=== PATIENT | female | born 1980 | race Caucasian/White ===

== ENCOUNTER 2019-05-13 09:44 | Day surgery (SDC) | payer MEDICAID ==
[~2019-05-13 09:44] MED LIST: ACETAMINOPHEN 325 MG TABLET PO PRN; CEFAZOLIN SODIUM 1 GM in DEXTROSE 5%-WATER 50 ML IV PRN; RINGERS SOLUTION,LACTATED 1,000 ML IV PRN
[2019-05-13 12:18] LABS: HEMATOCRIT 38.1 % (36.0-47.0); HEMOGLOBIN 12.9 g/dL (12.0-15.5); MEAN CORPUSCULAR HEMOGLOBIN 30.4 pg (27.0-33.4); MEAN CORPUSCULAR HGB CONC 33.9 g/dL (32.0-36.0); MEAN CORPUSCULAR VOLUME 90 fl (80-97); PLATELET COUNT 274 10^3/uL (150-450); RED BLOOD COUNT 4.26 10^6/uL (3.72-5.28); RED CELL DISTRIBUTION WIDTH 13.4 % (11.5-14.0); WHITE BLOOD COUNT 5.9 10^3/uL (4.0-10.5)
[2019-05-13] MEDS ORDERED: BACITRACIN INJ 50,000 UNIT VIAL ONE (12:36)
[2019-05-13] MEDS ORDERED: LIDOCAINE 0.5% INJ-PF (5 MG/ML) 50 ML SDV ONE (12:36)
[2019-05-13] MEDS ORDERED: MIDAZOLAM 2 MG/2 ML INJ ONE ×3 (12:39→13:32)
[2019-05-13] MEDS ORDERED: FENTANYL CITRATE INJ/PF 100 MCG/2 ML AMPUL ONE (12:39)
--- NOTE | 2019-05-13 14:05 | Discharge Summary ---
Discharge Summary (SDC) - Discharge Final Diagnosis: Multicentric left breast cancer Date of Surgery: 05/13/19 Discharge Date: 05/13/19 Condition: Good Treatment or Instructions: May use port; may shower in 48 hours; prescription for Toradol provided; follow-up with [facility] in 1 to 2 weeks Discharge Diet: As Tolerated Discharge Activity: Activity As Tolerated Home Care Assistance: None Needed Report the Following to Your Physician Immediately: Shortness of Breath, Increase in Pain, Fever over 101 Degrees
--- NOTE | 2019-05-13 14:16 | Operative Report ---
Operative Report DATE OF SURGERY: 05/13/19 PREOPERATIVE DIAGNOSIS: Multicentric left breast cancer POSTOPERATIVE DIAGNOSIS: Same OPERATION: 1. Focused ultrasound of the right neck. 2. Catheter insertion of right internal jugular vein catheter with port in the right subclavian position. 3. Interpretation of intraoperative fluoroscopy SURGEON: CONNOR LOOMIS ANESTHESIA: Moderate Sedation TISSUE REMOVED OR ALTERED: None COMPLICATIONS: None ESTIMATED BLOOD LOSS: 10 cc INTRAOPERATIVE FINDINGS: See below PROCEDURE: The patient was taken from the amatory surgery to the cardiac Industrial Nurse which was placed supine position arms tucked, right neck and chest wall prepped and draped in sterile fashion. Surgical plan surgical timeout were conducted Using real-time ultrasound as a guide, the right internal jugular vein was localized, overlying skin anesthetized 1% plain lidocaine, myrna made the skin with 11 blade, and micro needle and wire threaded into the right internal jugular vein Suitable site for placement of the port was chosen in the right subclavian position. Skin was anesthetized with 1% plain lidocaine, 3-1/2 cm long incision was made with a knife. Using electrocautery, port pocket was developed large enough to accommodate a single-chamber port. The catheter was then trimmed the appropriate length, tunneled between the 2 incisions, then attached to the port with the plastic ring. The port was tucked into the right subclavian position The microwire was switched over to a conventional 0.030 guidewire using the micro introducer sheath. The 8.8 Turkmen introducer sheath and dilator were threaded over the guidewire, guidewire and wire removed, and catheter free and threaded into the strip away sheath strip away sheath was removed, leaving the catheter in good position fluoroscopically with the right atrium. There was no kinking of the catheter at the neck. We inserted a Barnett needle into the port, and port was aspirated and flushed satisfactorily. At this point we felt the operation had been completed successfully. All wounds closed with 3-0 Vicryl benzoin and Steri-Strips. Patient tolerated procedure well, taken recovery in stable condition.
--- NOTE | 2019-05-13 14:37 | RADIOLOGY REPORT (SQ) ---
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 FLUOROSCOPY TIME: 0.1 minute 25 images saved to PACS. TECHNIQUE: Intra-operative images acquired during surgical procedure to evaluate progress. NUMBER OF IMAGES: 25 LIMITATIONS: None. FINDINGS: Fluoroscopic images from right-sided port placement. Tip overlies SVC. IMPRESSION: IMAGE(S) OBTAINED DURING PROCEDURE. COMMENT: Quality ID 145: Final reports for procedures using fluoroscopy that document radiation exp osure indices, or exposure time and number of fluorographic images (if radiation exposure indices are not available) Please consult full operative report of the attending physician for description of the procedure. TECHNICAL DOCUMENTATION: JOB ID: [id number] [employer]- All Rights Reserved Reading location - IP/workstation name: [email or web address]
[2019-05-13 15:09] VITALS: BP 130/80
== END 2019-05-13 15:00 | disposition home or self-care (01) ==
LOC: CCL 09:44
PROVIDERS: ATTEND Surgery
DX: C50.812 Malignant neoplasm of overlapping sites of left female breast (principal); E28.2 Polycystic ovarian syndrome; Z80.3 Family history of malignant neoplasm of breast
CPT/HCPCS: 36415; 85027; 81025; 36561; 76937; 77001; C1752; C1788; J2250; J3490 ×2; J0690; J3010; J7060; J1644

== ENCOUNTER → 2019-05-16 | Outpatient (CLI) | payer MEDICAID ==
--- NOTE | 2019-05-16 12:50 | RADIOLOGY REPORT (SQ) ---
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 RADIONUCLIDE AND DOSE: 20 millicuries Tc99m HDP. The route of agent administration: Intravenous. ADDITIONAL DRUGS AND DOSES: None. TECHNIQUE: Routine delayed images at 3 hours post radionuclide injection acquired of the bony skelet on including anterior and posterior whole-body projections and additional focused images as needed. LIMITATIONS: None. FINDINGS: BONES: There is focal uptake in the right scapula, the proximal right 7th rib, the proxima l 4th ribs, the right coracoid process, the right 5th costochondral junction, the right 6th rib anter iorly, the left maxilla. KIDNEYS: Symmetric excretion without obstruction. OTHER: No other significant finding. IMPRESSION: The skeletal findings suggest metastatic disease to bone. The activity in the maxilla m ay be secondary to dental disease. COMMENT: Quality measure 147: No available prior imaging studies for comparison TECHNICAL DOCUMENTATION: JOB ID: [id number] [employer]- All Rights Reserved Reading location - IP/workstation name: [email or web address]
== END ==
LOC: RAD 07:57
PROVIDERS: ATTEND Internal Medicine Hematology & Oncology
DX: C50.812 Malignant neoplasm of overlapping sites of left female breast (principal)
CPT/HCPCS: 78306; A9561; Q9969

== ENCOUNTER → 2019-05-20 | Outpatient (CLI) | payer MEDICAID ==
--- NOTE | 2019-05-20 10:21 | RADIOLOGY REPORT (SQ) ---
EXAM DESCRIPTION: CT ABD/PELVIS WITH IV ORAL COMPLETED DATE/TIME: 05/20/2019 9:13 am REASON FOR STUDY: MALIGNANT NEOPLASM OF OVRLP SITES OF LEFT FEMALE BREAST C50.812 MALIGNANT NEOPLAS M OF OVRLP SITES OF LEFT FEMALE SIMIN COMPARISON: 05/16/2019 bone scan TECHNIQUE: CT scan of the abdomen and pelvis performed using helical scanning technique with dynamic intravenous contrast injection. Patient was given oral contrast. Images reviewed with lung, soft ti ssue, and bone windows. Reconstructed coronal and sagittal MPR images reviewed. Delayed images for ev aluation of the urinary system also acquired. All images stored on PACS. All CT scanners at this facility use dose modulation, iterative reconstruction, and/or weight based d osing when appropriate to reduce radiation dose to as low as reasonably achievable (ALARA). [facility]: Dose Right [facility]: CareDose [facility]: Dose Right [facility]: Teradose 4D [facility]: [employer] CONTRAST TYPE AND DOSE: contrast/concentration: Isovue 350.00 mg/ml; Total Contrast Delivered: 100.0 ml; Total Saline Delivered: 72.0 ml RENAL FUNCTION: None required. The patient is less than 50 years old. RADIATION DOSE: . LIMITATIONS: None. FINDINGS: LOWER CHEST: See separate report of the CT of the chest. LIVER: Hepatic steatosis. No focal lesions. No intrahepatic ductal dilation. SPLEEN: Peripherally calcified splenic lesion measuring 2.2 cm. No additional focal lesions. PANCREAS: No masses. No significant calcifications. No adjacent inflammation or peripancreatic fluid collections. Pancreatic duct not dilated. GALLBLADDER: No identified stones by CT criteria. No inflammatory changes to suggest cholecystitis. ADRENAL GLANDS: No significant masses or asymmetry. RIGHT KIDNEY AND URETER: No solid masses. No significant calcifications. No hydronephrosis or hyd roureter. LEFT KIDNEY AND URETER: No solid masses. No significant calcifications. No hydronephrosis or hydr oureter. AORTA AND VESSELS: No aneurysm. No dissection. Renal arteries, SMA, celiac without stenosis. RETROPERITONEUM: No retroperitoneal adenopathy, hemorrhage or masses. BOWEL AND PERITONEAL CAVITY: No masses or inflammatory changes. No free fluid or peritoneal masses. APPENDIX: Normal. PELVIS: Decompressed urinary bladder. Unremarkable uterus and adnexal. No lymphadenopathy. No free fluid. ABDOMINAL WALL: No masses. No hernias. BONES: No acute bony abnormality. No discrete lytic or blastic osseous lesions. No discrete osseous findings to correspond to previously seen areas of increased uptake on the bone scan. OTHER: No other significant finding. IMPRESSION: 1. Peripherally calcified dx 2.2 cm splenic lesion, likely sequelae from prior infectio n/trauma. 2. Hepatic steatosis. 3. No other evidence of acute intra-abdominal process or intra-abdominal/pelvic metastatic disease. TECHNICAL DOCUMENTATION: JOB ID: [id number] Quality ID # 436: Final reports with documentation of one or more dose reduction techniques (e.g., Au tomated exposure control, adjustment of the mA and/or kV according to patient size, use of iterative reconstruction technique) 2010 [employer]- All Rights Reserved Reading location - IP/workstation name: [email or web address]
--- NOTE | 2019-05-20 10:31 | RADIOLOGY REPORT (SQ) ---
EXAM DESCRIPTION: CT CHEST WITH COMPLETED DATE/TIME: 05/20/2019 9:13 am REASON FOR STUDY: MALIGNANT NEOPLASM OF OVRLP SITES OF LEFT FEMALE BREAST C50.812 MALIGNANT NEOPLAS M OF OVRLP SITES OF LEFT FEMALE SIMIN COMPARISON: None. TECHNIQUE: CT scan of the chest performed using helical scanning technique with dynamic intravenous contrast injection. Images reviewed with lung, soft tissue and bone windows. Reconstructed coronal and sagittal MPR and MIP images reviewed. All images stored on PACS. All CT scanners at this facility use dose modulation, iterative reconstruction, and/or weight based d osing when appropriate to reduce radiation dose to as low as reasonably achievable (ALARA). [facility]: Dose Right [facility]: CareDose [facility]: Dose Right [facility]: Teradose 4D [facility]: [employer] CONTRAST TYPE AND DOSE: See abdomen RENAL FUNCTION: None required. The patient is less than 50 years old. RADIATION DOSE: CT Rad equipment meets quality standard of care and radiation dose reduction techniq ues were employed. CTDIvol: 10.0 - 12.9 mGy. DLP: 1921 mGy-cm. . LIMITATIONS: None. FINDINGS: LUNGS AND PLEURA: No opacities, nodules, masses. No pneumothorax. No effusions. HILAR AND MEDIASTINAL STRUCTURES: No identified masses or abnormal nodes. HEART AND VASCULAR STRUCTURES: No aneurysm or dissection. No central pulmonary emboli. No pericardi al effusion. HARDWARE: Right-sided internal jugular based chest port with catheter tip at cavoatrial junction UPPER ABDOMEN: See separate report of the CT of the abdomen. THYROID AND OTHER SOFT TISSUES: Unremarkable thyroid. Asymmetric multilobulated soft tissue density within the left breast with evidence of prior clip placement. Largest area measures approximately 5. 6 x 3.4 cm. There additional adjacent subcutaneous areas including a superficial component measuring up to 3.2 cm. There is left axillary adenopathy, largest axillary node measures 18 mm in short axis (series 2, image 19). BONES: No acute bony abnormality. Subtle area of lucency within the medial right scapula (series 6, image 30) which likely corresponds to bone scan finding. No other findings to correspond to areas of increased uptake within the prior bone scan. OTHER: No other significant finding. IMPRESSION: 1. Asymmetric multilobulated increased density within the left breast compatible with k nown history of breast cancer. Enlarged left axillary lymph nodes compatible with metastatic disease . 2. No other evidence of intrathoracic metastatic disease. 3. Subtle area of lucency within the right medial right scapula which likely corresponds to bone sca n finding and suggestive of osseous metastatic disease. No other CT correlate for the areas of incre ased uptake on prior bone scan. TECHNICAL DOCUMENTATION: JOB ID: [id number] Quality ID # 436: Final reports with documentation of one or more dose reduction techniques (e.g., Au tomated exposure control, adjustment of the mA and/or kV according to patient size, use of iterative reconstruction technique) 2010 [employer]- All Rights Reserved Reading location - IP/workstation name: [email or web address]
== END ==
LOC: RAD 08:51
PROVIDERS: ATTEND Internal Medicine Hematology & Oncology
DX: C50.812 Malignant neoplasm of overlapping sites of left female breast (principal); K76.0 Fatty (change of) liver, not elsewhere classified
CPT/HCPCS: 71260; 74177

== ENCOUNTER → 2019-09-13 | Outpatient (CLI) | payer MEDICAID ==
--- NOTE | 2019-09-13 09:03 | RADIOLOGY REPORT (SQ) ---
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 Images reviewed with lung, soft tissue and bone windows. Reconstructed coronal a nd sagittal MPR images reviewed. All images stored on PACS. CT scan of the abdomen and pelvis performed with intravenous and without oral contrastusing helical s dorothy technique with dynamic intravenous contrast injection. Images reviewed with lung, soft tissu e and bone windows. Reconstructed coronal and sagittal MPR images reviewed. Delayed images for eval uation of the urinary system also acquired and evaluated. All images stored on PACS. All CT scanners at this facility use dose modulation, iterative reconstruction, and/or weight based d osing when appropriate to reduce radiation dose to as low as reasonably achievable (ALARA). [facility]: Dose Right [facility]: CareDose [facility]: Dose Right [facility]: Teradose 4D [facility]: [employer] RADIATION DOSE: CT Rad equipment meets quality standard of care and radiation dose reduction techniq ues were employed. CTDIvol: 8.5 - 11.9 mGy. DLP: 1640 mGy-cm. . LIMITATIONS: None. FINDINGS: CHEST: LUNGS AND PLEURA: No opacities, nodules, masses. No pneumothorax. No effusions. HILAR AND MEDIASTINAL STRUCTURES: No identified masses or abnormal nodes. HEART AND VASCULAR STRUCTURES: No aneurysm or dissection. No central pulmonary emboli. No pericardi al effusion. HARDWARE: Right-sided permanent central line tip superior vena cava. THYROID AND OTHER SOFT TISSUES: Decrease in size of left breast masses compared to prior chest CT as follows: 2.3 cm left breast mass axial image 16 (was 3.2 cm greatest diameter) 4.5 x 3 cm left breast mass axial image 19 (was 5.7 x 3.5 cm) Decrease in size of left axillary node compared to prior study, currently 2.7 x 2 cm axial image 17 ( was 3.5 x 2.3 cm). BONES: No significant finding. OTHER: No other significant finding. ABDOMEN AND PELVIS: LIVER: Normal size. No masses. No dilated ducts. Fatty infiltration SPLEEN: Normal size. Benign peripherally calcified 2.2 x 2.4 cm splenic cyst. PANCREAS: No masses. No significant calcifications. No adjacent inflammation or peripancreatic fluid collections. Pancreatic duct not dilated. GALLBLADDER: Tiny stone in the gallbladder axial image 26. No inflammatory changes to suggest cholecy stitis. ADRENAL GLANDS: No significant masses or asymmetry. RIGHT KIDNEY AND URETER: No solid masses. No significant calcification. No hydronephrosis or hydroure ter. LEFT KIDNEY AND URETER: No solid masses. No significant calcification. No hydronephrosis or hydrouret er. AORTA AND VESSELS: No aneurysm. No dissection. Renal arteries, SMA, celiac without stenosis. RETROPERITONEUM: No retroperitoneal adenopathy, hemorrhage or masses. BOWEL AND PERITONEAL CAVITY: No masses or inflammatory changes. No free fluid or peritoneal masses. APPENDIX: Normal. ABDOMINAL WALL: No masses. No hernias. PELVIS: No mass or free fluid. Normal bladder. BONES: No significant or acute findings. OTHER: No other significant finding. IMPRESSION: Treatment response radiographically left breast by CT. Decrease in size of left axillar y lymph node. No CT evidence of metastatic disease to the abdomen or pelvis TECHNICAL DOCUMENTATION: JOB ID: [id number] Quality ID # 436: Final reports with documentation of one or more dose reduction techniques (e.g., Au tomated exposure control, adjustment of the mA and/or kV according to patient size, use of iterative reconstruction technique) 2010 [employer]- All Rights Reserved Reading location - IP/workstation name: [email or web address]
== END ==
LOC: RAD 07:32
PROVIDERS: ATTEND Nurse Practitioner Family
DX: C50.812 Malignant neoplasm of overlapping sites of left female breast (principal)
CPT/HCPCS: 71260; 74177

== ENCOUNTER → 2020-01-03 | Outpatient (CLI) | payer MEDICAID ==
--- NOTE | 2020-01-03 13:59 | RADIOLOGY REPORT (SQ) ---
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 The route of agent administration: Intravenous. ADDITIONAL DRUGS AND DOSES: None. TECHNIQUE: Routine delayed images at 3 hour post radionuclide injection acquired of the bony skeleto n including anterior and posterior whole-body projections and additional focused images as needed. LIMITATIONS: None. FINDINGS: BONES: Focal area of uptake along the posterior right 6th ribs and right scapula, similar to prior. Additional focus of activity within the left maxilla, similar to prior. Additional previ ously described activity within the anterior 5th and 6th ribs have decreased in conspicuity. No new discrete lesions. Mild uptake at the bilateral feet, likely degenerative. KIDNEYS: Symmetric excretion without obstruction. OTHER: No other significant finding. IMPRESSION: 1. Stable to decreased conspicuity of previously described bony lesions as above and britton spicious for metastatic disease. No definitive CT correlate identified. 2. No new discrete osseous lesions. COMMENT: Quality measure 147: Current bone scan is compared with any available plain radiographs, p rior bone scans, and CT/MRI. TECHNICAL DOCUMENTATION: JOB ID: [id number] 2010 [employer]- All Rights Reserved Reading location - IP/workstation name: [email or web address]
== END ==
LOC: RAD 09:04
PROVIDERS: ATTEND Internal Medicine Hematology & Oncology
DX: C50.812 Malignant neoplasm of overlapping sites of left female breast (principal); C79.51 Secondary malignant neoplasm of bone
CPT/HCPCS: 78306; A9503; Q9969

== ENCOUNTER 2020-04-10 12:50 | Outpatient (CLI) | payer MEDICAID ==
[~2020-04-10 12:50] MED LIST changes: -ACETAMINOPHEN 325 MG TABLET PO PRN; -CEFAZOLIN SODIUM 1 GM in DEXTROSE 5%-WATER 50 ML IV PRN; +NORMAL SALINE 250 ML IV PRN; -RINGERS SOLUTION,LACTATED 1,000 ML IV PRN
[2020-04-10] MEDS: CALCIUM GLUCONATE 1 GM/NS 50 ML RTU IV PRN ×2 (13:06→14:24)
[2020-04-10 13:14] VITALS: BP 117/65
== END 2020-04-10 15:30 | disposition home or self-care (01) ==
LOC: II 12:50 → 5TH 12:53 → II 15:30
PROVIDERS: ATTEND Internal Medicine Hematology & Oncology
DX: E83.51 Hypocalcemia (principal)
CPT/HCPCS: 96365; 96366; J1642; J0610

== ENCOUNTER → 2020-05-04 | Outpatient (CLI) | payer MEDICAID ==
--- NOTE | 2020-05-04 09:39 | RADIOLOGY REPORT (SQ) ---
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 0 ml; Total Saline Delivered: 40.0 ml RENAL FUNCTION: None required. The patient is less than 50 years old. COMPARISON: 09/13/2019 TECHNIQUE: CT scan of the chest performed using helical scanning technique with dynamic intravenous contrast injection. Images reviewed with lung, soft tissue and bone windows. Reconstructed coronal a nd sagittal MPR images reviewed. All images stored on PACS. All CT scanners at this facility use dose modulation, iterative reconstruction, and/or weight based d osing when appropriate to reduce radiation dose to as low as reasonably achievable (ALARA). [facility]: Dose Right [facility]: CareDose [facility]: Dose Right [facility]: Teradose 4D [facility]: [employer] RADIATION DOSE: CT Rad equipment meets quality standard of care and radiation dose reduction techniq ues were employed. CTDIvol: 9.2 - 12.4 mGy. DLP: 1783 mGy-cm. . LIMITATIONS: None. FINDINGS: AXILLAE: The left chest wall lymph node measures 13.5 mm in diameter. This is decreased f rom prior study there has been a change in configuration as well. CHEST WALL: Left breast mass is measured 3.8 x 2.5 cm. Previously this measured 2.3 cm. LUNGS: No nodules or masses. No pneumothorax. No infiltrates. PLEURA: No effusions. No calcifications. THYROID: No masses or significant asymmetry. HILAR AND MEDIASTINAL STRUCTURES: No identified masses or abnormal nodes. AORTA AND GREAT VESSELS: No aneurysm. No dissection. PULMONARY ARTERIES: No identified pulmonary emboli. Study not optimized for the pulmonary arteries. HEART: No pericardial effusion. HARDWARE AND LIFELINES: Pcorey-L-Oimc is in place on the right. BONES: No significant finding. OTHER: No other significant finding. IMPRESSION: 1. Left breast mass is increasing in size and now measures 3.8 x 2.5 cm in size. 2. Left axillary adenopathy is again noted. There is a solid lymph node measuring 13.5 mm in greates t diameter. This is decreased in size compared to prior study there has been a change in configurati on as well. COMPARISON: None. RADIATION DOSE: CT Rad equipment meets quality standard of care and radiation dose reduction techniq ues were employed. CTDIvol: 9.2 - 12.4 mGy. DLP: 1783 mGy-cm. mGy. TECHNIQUE: CT scan of the abdomen and pelvis performed with intravenous and oral contrast using princess gina scanning technique with dynamic intravenous contrast injection. Images reviewed with lung, soft tissue and bone windows. Reconstructed coronal and sagittal MPR images reviewed. Delayed images for evaluation of the urinary system also acquired and evaluated. All images stored on PACS. All CT scanners at this facility use dose modulation, iterative reconstruction, and/or weight based d osing when appropriate to reduce radiation dose to as low as reasonably achievable (ALARA). [facility]: Dose Right [facility]: [employer] [facility]: Dose Right [facility]: Teradose 4D [facility]: [employer] FINDINGS: LIVER: Normal size. No masses. No dilated ducts. SPLEEN: Stable calcified splenic lesion most likely related via old trauma or old infectious process. PANCREAS: No masses. No significant calcifications. No adjacent inflammation or peripancreatic flui d collections. Pancreatic duct not dilated. GALLBLADDER: Gallstones. ADRENAL GLANDS: No significant masses or asymmetry. RIGHT KIDNEY AND URETER: No solid masses. No significant calcifications. No hydronephrosis or hyd roureter. LEFT KIDNEY AND URETER: No solid masses. No significant calcifications. No hydronephrosis or hydr oureter. AORTA AND VESSELS: No aneurysm. No dissection. Renal arteries, SMA, celiac without stenosis. RETROPERITONEUM: No retroperitoneal adenopathy, hemorrhage or masses. LARGE AND SMALL BOWEL: No dilatation. No masses. No wall thickening. APPENDIX: Normal. ABDOMINAL WALL: No hernia or masses. PERITONEAL CAVITY: No free air. No free fluid. No peritoneal implants or masses. PELVIS: Moderate free fluid the pelvis. More than would be expected for physiologic fluid. BONES: Focal sclerotic lesion in the S1 vertebral body best demonstrated on series 8, image 67 this w as not apparent on prior CT. Correlation with bone scan is recommended. Small sclerotic lesion in t he right ilium is unchanged in appearance. OTHER: No other significant finding. IMPRESSION: Small sclerotic bone lesions as described correlation with bone scan is recommended. No evidence of soft tissue metastasis. TECHNICAL DOCUMENTATION: JOB ID: [id number] Quality ID # 436: Final reports with documentation of one or more dose reduction techniques (e.g., Au tomated exposure control, adjustment of the mA and/or kV according to patient size, use of iterative reconstruction technique) 2010 [employer]- All Rights Reserved Reading location - IP/workstation name: [email or web address]
--- NOTE | 2020-05-04 09:39 | RADIOLOGY REPORT (SQ) ---
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 0 ml; Total Saline Delivered: 40.0 ml RENAL FUNCTION: None required. The patient is less than 50 years old. COMPARISON: 09/13/2019 TECHNIQUE: CT scan of the chest performed using helical scanning technique with dynamic intravenous contrast injection. Images reviewed with lung, soft tissue and bone windows. Reconstructed coronal a nd sagittal MPR images reviewed. All images stored on PACS. All CT scanners at this facility use dose modulation, iterative reconstruction, and/or weight based d osing when appropriate to reduce radiation dose to as low as reasonably achievable (ALARA). [facility]: Dose Right [facility]: CareDose [facility]: Dose Right [facility]: Teradose 4D [facility]: Proxima Cancion RADIATION DOSE: CT Rad equipment meets quality standard of care and radiation dose reduction techniq ues were employed. CTDIvol: 9.2 - 12.4 mGy. DLP: 1783 mGy-cm. . LIMITATIONS: None. FINDINGS: AXILLAE: The left chest wall lymph node measures 13.5 mm in diameter. This is decreased f rom prior study there has been a change in configuration as well. CHEST WALL: Left breast mass is measured 3.8 x 2.5 cm. Previously this measured 2.3 cm. LUNGS: No nodules or masses. No pneumothorax. No infiltrates. PLEURA: No effusions. No calcifications. THYROID: No masses or significant asymmetry. HILAR AND MEDIASTINAL STRUCTURES: No identified masses or abnormal nodes. AORTA AND GREAT VESSELS: No aneurysm. No dissection. PULMONARY ARTERIES: No identified pulmonary emboli. Study not optimized for the pulmonary arteries. HEART: No pericardial effusion. HARDWARE AND LIFELINES: [id number] is in place on the right. BONES: No significant finding. OTHER: No other significant finding. IMPRESSION: 1. Left breast mass is increasing in size and now measures 3.8 x 2.5 cm in size. 2. Left axillary adenopathy is again noted. There is a solid lymph node measuring 13.5 mm in greates t diameter. This is decreased in size compared to prior study there has been a change in configurati on as well. COMPARISON: None. RADIATION DOSE: CT Rad equipment meets quality standard of care and radiation dose reduction techniq ues were employed. CTDIvol: 9.2 - 12.4 mGy. DLP: 1783 mGy-cm. mGy. TECHNIQUE: CT scan of the abdomen and pelvis performed with intravenous and oral contrast using princess gina scanning technique with dynamic intravenous contrast injection. Images reviewed with lung, soft tissue and bone windows. Reconstructed coronal and sagittal MPR images reviewed. Delayed images for evaluation of the urinary system also acquired and evaluated. All images stored on PACS. All CT scanners at this facility use dose modulation, iterative reconstruction, and/or weight based d osing when appropriate to reduce radiation dose to as low as reasonably achievable (ALARA). [facility]: Dose Right [facility]: SureCare [facility]: Dose Right [facility]: Teradose 4D [facility]: Proxima Cancion FINDINGS: LIVER: Normal size. No masses. No dilated ducts. SPLEEN: Stable calcified splenic lesion most likely related via old trauma or old infectious process. PANCREAS: No masses. No significant calcifications. No adjacent inflammation or peripancreatic flui d collections. Pancreatic duct not dilated. GALLBLADDER: Gallstones. ADRENAL GLANDS: No significant masses or asymmetry. RIGHT KIDNEY AND URETER: No solid masses. No significant calcifications. No hydronephrosis or hyd roureter. LEFT KIDNEY AND URETER: No solid masses. No significant calcifications. No hydronephrosis or hydr oureter. AORTA AND VESSELS: No aneurysm. No dissection. Renal arteries, SMA, celiac without stenosis. RETROPERITONEUM: No retroperitoneal adenopathy, hemorrhage or masses. LARGE AND SMALL BOWEL: No dilatation. No masses. No wall thickening. APPENDIX: Normal. ABDOMINAL WALL: No hernia or masses. PERITONEAL CAVITY: No free air. No free fluid. No peritoneal implants or masses. PELVIS: Moderate free fluid the pelvis. More than would be expected for physiologic fluid. BONES: Focal sclerotic lesion in the S1 vertebral body best demonstrated on series 8, image 67 this w as not apparent on prior CT. Correlation with bone scan is recommended. Small sclerotic lesion in t he right ilium is unchanged in appearance. OTHER: No other significant finding. IMPRESSION: Small sclerotic bone lesions as described correlation with bone scan is recommended. No evidence of soft tissue metastasis. TECHNICAL DOCUMENTATION: JOB ID: [id number] Quality ID # [id number]: Final reports with documentation of one or more dose reduction techniques (e.g., Au tomated exposure control, adjustment of the mA and/or kV according to patient size, use of iterative reconstruction technique) 2010 [employer]- All Rights Reserved Reading location - IP/workstation name: [email or web address]
--- NOTE | 2020-05-04 13:29 | RADIOLOGY REPORT (SQ) ---
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 RADIONUCLIDE AND DOSE: 20.0 millicuries Tc99m MDP. The route of agent administration: Intravenous. ADDITIONAL DRUGS AND DOSES: None. TECHNIQUE: Routine delayed images at 3 hour post radionuclide injection acquired of the bony skeleto n including anterior and posterior whole-body projections and additional focused images as needed. LIMITATIONS: None. FINDINGS: BONES: Normal visualization without areas of photopenia or increased bony uptake of radiop harmaceutical. KIDNEYS: Symmetric excretion without obstruction. OTHER: No other significant finding. IMPRESSION: Negative whole body bone scan. Focal sclerotic lesion demonstrated on CT shows no evide nce of abnormal metabolic activity on bone scan. COMMENT: Quality measure 147: Current bone scan is compared with any available plain radiographs, p rior bone scans, and CT/MRI. TECHNICAL DOCUMENTATION: JOB ID: [id number] 2010 [employer]- All Rights Reserved Reading location - IP/workstation name: [email or web address]
== END ==
LOC: RAD 08:35
PROVIDERS: ATTEND Internal Medicine Hematology & Oncology
DX: C50.812 Malignant neoplasm of overlapping sites of left female breast (principal); C79.51 Secondary malignant neoplasm of bone; M89.9 Disorder of bone, unspecified
CPT/HCPCS: 78306; 71260; 74177; A9503; Q9969